=== PATIENT | male | born 1985 | race Caucasian/White ===

== ENCOUNTER 2020-03-06 11:53 | Emergency (ER) | payer OTHER ==
--- NOTE | 2020-03-06 13:18 | EDM.PDOC ---
ED HPI GENERAL MEDICAL PROBLEM - General Chief Complaint: General Stated Complaint: HAS ACUTE LIVER FAILURE Time Seen by Provider: 03/06/20 13:18 Source of Information: Reports: Patient History Limitations: Reports: No Limitations - History of Present Illness INITIAL COMMENTS - FREE TEXT/NARRATIVE: pt stood up and passed out today. He has a history of liver diseasse. Pt was martha quintanilla recently worked up at the [facility] in [facility]> Pt was told he had liver failure. Onset: Today, Other (pt passed out today when he stood up. ) Duration: Hour(s): Location: Reports: Head, Abdomen Associated Symptoms: Reports: Syncope, Weakness - Related Data Allergies Allergy/AdvReac Type Severity Reaction Status Date / Time No Known Allergies Allergy Verified 03/06/20 12:42 Home Meds: Home Meds lisinopriL [Lisinopril] 40 mg PO DAILY 03/06/20 [History] metFORMIN [Glucophage] 500 mg PO BIDMEALS 03/06/20 [History] prednisoLONE [Prednisolone] 13.3 ml PO DAILY 03/06/20 [History] Past Medical History HEENT History: Reports: Allergic Rhinitis, Impaired Vision Cardiovascular History: Reports: Hypertension Gastrointestinal History: Reports: Other (See Below) Other Gastrointestinal History: acute liver injury Neurological History: Reports: Other (See Below) Other Neuro History: essential tremors Psychiatric History: Reports: Anxiety, Depression, PTSD Endocrine/Metabolic History: Reports: Diabetes, Type II Dermatologic History: Reports: Psoriasis Social & Family History - Tobacco Use Smoking Status *Q: Current Every Day Smoker Years of Tobacco use: 15 Packs/Tins Daily: 1 - Caffeine Use Caffeine Use: Reports: None - Recreational Drug Use Recreational Drug Use: Yes Recreational Drug Type: Reports: Marijuana/Hashish Recreational Drug Use Frequency: Socially ED ROS GENERAL - Review of Systems Review Of Systems: See Below Constitutional: Reports: Fever, Chills, Weakness HEENT: Reports: No Symptoms Respiratory: Reports: No Symptoms Cardiovascular: Reports: Syncope Endocrine: Reports: High Glucose GI/Abdominal: Reports: No Symptoms : Reports: No Symptoms Musculoskeletal: Reports: No Symptoms Skin: Reports: No Symptoms Neurological: Reports: Syncope, Other (pt was hypotensive. ) ED EXAM, GENERAL - Physical Exam Exam: See Below Free Text/Narrative:: pt arrived with a history of pasing out this am. [facility] and was worked [facility]. He was told he was in [facility]. He does have a temp of 101. Exam Limited By: No Limitations General Appearance: Alert, No Apparent Distress, Anxious, Other (pupils are equal and reactive. He is clinically jaundiced. ) Ears: Normal TMs Nose: Normal Inspection Throat/Mouth: Normal Inspection Head: Atraumatic Neck: Normal Inspection Respiratory/Chest: No Respiratory Distress Cardiovascular: Regular Rate, Rhythm GI/Abdominal: Soft, Non-Tender (Male) Exam: Deferred Rectal (Males) Exam: Deferred Back Exam: Normal Inspection Extremities: Normal Inspection Neurological: Alert, Oriented, Normal Cognition Psychiatric: Anxious Course - Vital Signs Last Recorded V/S: Last Vital Signs Temp 36.7 C 03/06/20 17:44 Pulse 85 03/06/20 19:22 Resp 25 H 03/06/20 19:22 BP 92/36 L 03/06/20 19:22 Pulse Ox 95 03/06/20 19:22 - Orders/Labs/Meds Labs: Laboratory Tests 03/06/20 03/06/20 03/06/20 Range/Units 13:06 13:06 13:07 WBC 23.8 H (4.5-11.0) K/uL RBC 3.61 L (4.30-5.90) M/uL Hgb 12.1 (12.0-15.0) g/dL Hct 33.6 L (40.0-54.0) % MCV 93 (80-98) fL MCH 34 H (27-31) pg MCHC 36 (32-36) % Plt Count 125 L (150-400) K/uL Add Manual Diff Yes Neutrophils % (Manual) 85 H (36-66) % Band Neutrophils % 3 L (5-11) % Lymphocytes % (Manual) 5 L (24-44) % Monocytes % (Manual) 6 (2-6) % Eosinophils % (Manual) 1 L (2-4) % PT (9.5-12.0) sec INR (0.80-1.20) APTT (27.0-36.0) sec Sodium 124 L (140-148) mmol/L Potassium 4.8 (3.6-5.2) mmol/L Chloride 90 L (100-108) mmol/L Carbon Dioxide 28 (21-32) mmol/L Anion Gap 10.8 (5.0-14.0) mmol/L BUN 31 H (7-18) mg/dL Creatinine 2.0 H (0.8-1.3) mg/dL Est Cr Clr Drug Dosing 50.35 mL/min Estimated GFR (MDRD) 38 L (>60) Glucose 587 H* (74-106) mg/dL Lactic Acid (0.4-2.0) mmol/L Calcium 8.4 L (8.5-10.1) mg/dL Total Bilirubin 8.4 H (0.2-1.0) mg/dL AST 58 H (15-37) U/L ALT 92 H (12-78) U/L Alkaline Phosphatase 233 H (46-116) U/L Ammonia 12 (11-32) mmol/L C-Reactive Protein (0.0-0.3) mg/dL Total Protein 6.1 L (6.4-8.2) g/dL Albumin 1.9 L (3.4-5.0) g/dL Globulin 4.2 H (2.3-3.5) g/dL Albumin/Globulin Ratio 0.5 L (1.2-2.2) Lipase (73-393) U/L Urine Color (YELLOW) Urine Appearance (CLEAR) Urine pH (5.0-8.0) Ur Specific Scobey (1.008-1.030) Urine Protein (NEGATIVE) mg/dL Urine Glucose (UA) (NEGATIVE) mg/dL Urine Ketones (NEGATIVE) mg/dL Urine Occult Blood (NEGATIVE) Urine Nitrite (NEGATIVE) Urine Bilirubin (NEGATIVE) Urine Urobilinogen (0.2-1.0) EU/dL Ur Leukocyte Esterase (NEGATIVE) Urine RBC (0-5) Urine WBC (0-5) Ur Epithelial Cells Amorphous Sediment Urine Bacteria Urine Mucus Ethyl Alcohol mg/dL 03/06/20 03/06/20 03/06/20 Range/Units 13:19 13:29 13:30 WBC (4.5-11.0) K/uL RBC (4.30-5.90) M/uL Hgb (12.0-15.0) g/dL Hct (40.0-54.0) % MCV (80-98) fL MCH (27-31) pg MCHC (32-36) % Plt Count (150-400) K/uL Add Manual Diff Neutrophils % (Manual) (36-66) % Band Neutrophils % (5-11) % Lymphocytes % (Manual) (24-44) % Monocytes % (Manual) (2-6) % Eosinophils % (Manual) (2-4) % PT 16.7 H (9.5-12.0) sec INR 1.59 H (0.80-1.20) APTT 30.1 (27.0-36.0) sec Sodium (140-148) mmol/L Potassium (3.6-5.2) mmol/L Chloride (100-108) mmol/L Carbon Dioxide (21-32) mmol/L Anion Gap (5.0-14.0) mmol/L BUN (7-18) mg/dL Creatinine (0.8-1.3) mg/dL Est Cr Clr Drug Dosing mL/min Estimated GFR (MDRD) (>60) Glucose (74-106) mg/dL Lactic Acid 3.5 H (0.4-2.0) mmol/L Calcium (8.5-10.1) mg/dL Total Bilirubin (0.2-1.0) mg/dL AST (15-37) U/L ALT (12-78) U/L Alkaline Phosphatase (46-116) U/L Ammonia (11-32) mmol/L C-Reactive Protein 5.62 H (0.0-0.3) mg/dL Total Protein (6.4-8.2) g/dL Albumin (3.4-5.0) g/dL Globulin (2.3-3.5) g/dL Albumin/Globulin Ratio (1.2-2.2) Lipase (73-393) U/L Urine Color (YELLOW) Urine Appearance (CLEAR) Urine pH (5.0-8.0) Ur Specific Scobey (1.008-1.030) Urine Protein (NEGATIVE) mg/dL Urine Glucose (UA) (NEGATIVE) mg/dL Urine Ketones (NEGATIVE) mg/dL Urine Occult Blood (NEGATIVE) Urine Nitrite (NEGATIVE) Urine Bilirubin (NEGATIVE) Urine Urobilinogen (0.2-1.0) EU/dL Ur Leukocyte Esterase (NEGATIVE) Urine RBC (0-5) Urine WBC (0-5) Ur Epithelial Cells Amorphous Sediment Urine Bacteria Urine Mucus Ethyl Alcohol mg/dL 03/06/20 03/06/20 03/06/20 Range/Units 13:34 14:00 14:00 WBC (4.5-11.0) K/uL RBC (4.30-5.90) M/uL Hgb (12.0-15.0) g/dL Hct (40.0-54.0) % MCV (80-98) fL MCH (27-31) pg MCHC (32-36) % Plt Count (150-400) K/uL Add Manual Diff Neutrophils % (Manual) (36-66) % Band Neutrophils % (5-11) % Lymphocytes % (Manual) (24-44) % Monocytes % (Manual) (2-6) % Eosinophils % (Manual) (2-4) % PT (9.5-12.0) sec INR (0.80-1.20) APTT (27.0-36.0) sec Sodium (140-148) mmol/L Potassium (3.6-5.2) mmol/L Chloride (100-108) mmol/L Carbon Dioxide (21-32) mmol/L Anion Gap (5.0-14.0) mmol/L BUN (7-18) mg/dL Creatinine (0.8-1.3) mg/dL Est Cr Clr Drug Dosing mL/min Estimated GFR (MDRD) (>60) Glucose (74-106) mg/dL Lactic Acid (0.4-2.0) mmol/L Calcium (8.5-10.1) mg/dL Total Bilirubin (0.2-1.0) mg/dL AST (15-37) U/L ALT (12-78) U/L Alkaline Phosphatase (46-116) U/L Ammonia (11-32) mmol/L C-Reactive Protein (0.0-0.3) mg/dL Total Protein (6.4-8.2) g/dL Albumin (3.4-5.0) g/dL Globulin (2.3-3.5) g/dL Albumin/Globulin Ratio (1.2-2.2) Lipase 383 (73-393) U/L Urine Color Yellow (YELLOW) Urine Appearance Clear (CLEAR) Urine pH 5.5 (5.0-8.0) Ur Specific Scobey 1.015 (1.008-1.030) Urine Protein Negative (NEGATIVE) mg/dL Urine Glucose (UA) 500 H (NEGATIVE) mg/dL Urine Ketones Negative (NEGATIVE) mg/dL Urine Occult Blood Negative (NEGATIVE) Urine Nitrite Negative (NEGATIVE) Urine Bilirubin Small H (NEGATIVE) Urine Urobilinogen 1.0 (0.2-1.0) EU/dL Ur Leukocyte Esterase Negative (NEGATIVE) Urine RBC Not seen (0-5) Urine WBC 0-5 (0-5) Ur Epithelial Cells Rare Amorphous Sediment Not seen Urine Bacteria Not seen Urine Mucus Not seen Ethyl Alcohol < 3 mg/dL 03/06/20 Range/Units 17:00 WBC (4.5-11.0) K/uL RBC (4.30-5.90) M/uL Hgb (12.0-15.0) g/dL Hct (40.0-54.0) % MCV (80-98) fL MCH (27-31) pg MCHC (32-36) % Plt Count (150-400) K/uL Add Manual Diff Neutrophils % (Manual) (36-66) % Band Neutrophils % (5-11) % Lymphocytes % (Manual) (24-44) % Monocytes % (Manual) (2-6) % Eosinophils % (Manual) (2-4) % PT (9.5-12.0) sec INR (0.80-1.20) APTT (27.0-36.0) sec Sodium (140-148) mmol/L Potassium (3.6-5.2) mmol/L Chloride (100-108) mmol/L Carbon Dioxide (21-32) mmol/L Anion Gap (5.0-14.0) mmol/L BUN (7-18) mg/dL Creatinine (0.8-1.3) mg/dL Est Cr Clr Drug Dosing mL/min Estimated GFR (MDRD) (>60) Glucose 538 H* (74-106) mg/dL Lactic Acid (0.4-2.0) mmol/L Calcium (8.5-10.1) mg/dL Total Bilirubin (0.2-1.0) mg/dL AST (15-37) U/L ALT (12-78) U/L Alkaline Phosphatase (46-116) U/L Ammonia (11-32) mmol/L C-Reactive Protein (0.0-0.3) mg/dL Total Protein (6.4-8.2) g/dL Albumin (3.4-5.0) g/dL Globulin (2.3-3.5) g/dL Albumin/Globulin Ratio (1.2-2.2) Lipase (73-393) U/L Urine Color (YELLOW) Urine Appearance (CLEAR) Urine pH (5.0-8.0) Ur Specific Sc[place]ey (1.008-1.030) Urine Protein (NEGATIVE) mg/dL Urine Glucose (UA) (NEGATIVE) mg/dL Urine Ketones (NEGATIVE) mg/dL Urine Occult Blood (NEGATIVE) Urine Nitrite (NEGATIVE) Urine Bilirubin (NEGATIVE) Urine Urobilinogen (0.2-1.0) EU/dL Ur Leukocyte Esterase (NEGATIVE) Urine RBC (0-5) Urine WBC (0-5) Ur Epithelial Cells Amorphous Sediment Urine Bacteria Urine Mucus Ethyl Alcohol mg/dL Meds: Medications Discontinued Medications Generic Name Dose Route Start Last Admin Trade Name Freq PRN Reason Stop Dose Admin Acetaminophen 650 mg 03/06/20 15:41 03/06/20 16:04 Tylenol PO 03/06/20 15:42 650 mg NOW ONE Administration Sodium Chloride 1,000 mls @ 999 mls/hr 03/06/20 13:30 03/06/20 13:30 Normal Saline IV 999 mls/hr ASDIRECTED ISABEL Administration Sodium Chloride 1,000 mls @ 999 mls/hr 03/06/20 14:45 03/06/20 14:45 Normal Saline IV 999 mls/hr ASDIRECTED ISABEL Administration Ceftriaxone Sodium 1 gm/ 50 mls @ 100 mls/hr 03/06/20 15:08 03/06/20 15:31 Sodium Chloride IV 03/06/20 15:37 100 mls/hr ONETIME ONE Administration Aztreonam 1 gm/ Sodium 50 mls @ 100 mls/hr 03/06/20 15:45 03/06/20 16:05 Chloride IV 03/06/20 16:14 100 mls/hr ONETIME ONE Administration Sodium Chloride 1,000 mls @ 500 mls/hr 03/06/20 17:00 03/06/20 17:00 Normal Saline IV 500 mls/hr ASDIRECTED ISABEL Administration Piperacillin Sod/Tazobactam 50 mls @ 100 mls/hr 03/06/20 17:45 03/06/20 17:48 Sod 3.375 gm/ Sodium Chloride IV 100 mls/hr ONETIME ISABEL Administration Insulin Human Regular 8 unit 03/06/20 15:46 03/06/20 15:59 Humulin R SUBCUT 03/06/20 15:47 8 units ONETIME ONE Administration Insulin Human Regular 8 unit 03/06/20 17:16 03/06/20 17:23 Humulin R SUBCUT 03/06/20 17:17 8 units ONETIME ONE Administration - Re-Assessments/Exams Free Text/Narrative Re-Assessment/Exam: 03/06/20 15:53 pt had a temp of 101 and was hypotensive. He had passed out at home. He has received 2 liters of fluid. 03/06/20 15:55 He was given rocephen and azactsm. He will receive a third liter of normal saline. Pt was given 8 units of insulin subq. 03/06/20 16:55 pt has a elevated creatnine and it was normal when at [facility]. 2.9, bun 38. he has a wbc of 23,000. 03/06/20 16:56 03/06/20 17:36 pt was accepted at [facility]. A Inr was done which was 1.59. He is on his 3rd liter of fluid and continues to be hypotensive. His bs is still very elevated and he was given another 6 units of insulin for a total of 14 units. He will go to [place]. p Departure - Departure Time of Disposition: 17:39 Disposition: DC/Tfer to Acute Hospital 02 Condition: Fair Clinical Impression: Hyperglycemia, Sepsis, Liver failure, Renal insufficiency, Hypotension, Hyponatremia - Discharge Information Referrals: PCP,None [Primary Care Provider] - Forms: ED Department Discharge Care Plan Goals: transfer to [facility] --[place]. Sepsis Event Note (ED) - Evaluation Sepsis Screening Result: No Definite Risk
[2020-03-06] MEDS ORDERED: Sodium Chloride 0.9% 1,000 ML IV SCH ×3 (13:30→17:00)
--- NOTE | 2020-03-06 13:56 | CR ---
CHEST: Portable 03/06/2020 at 1:43 PM CLINICAL HISTORY:Fever COMPARISON:None FINDINGS: There is less than optimal inspiration.. Heart size and pulmonary vascularity are normal. No infiltrates are seen. There are some streaky density at the right lung base which is likely subsegmental atelectasis Impression: Limited study with poor inspiration. No acute cardiopulmonary process
--- NOTE | 2020-03-06 14:25 | US ---
Abdomen Ltd CLINICAL HISTORY: Jaundice COMPARISON: None. TECHNIQUE: Real-time images were obtained through the right upper quadrant. FINDINGS: The liver is free of mass or biliary dilatation. There is normal hepatic echotexture. The gallbladder is contracted. The common bile duct measures 5 mm. The pancreas is moderately obscured by bowel gas. The right kidney has a normal appearance. The IVC is normal. IMPRESSION: Contracted gallbladder. No stones or biliary dilatation seen Normal liver parenchymal echogenicity
[2020-03-06] MEDS ORDERED: cefTRIAXone 1 GM in Sodium Chloride 0.9% 50 ML IV ONE (15:08)
[2020-03-06] MEDS ORDERED: Acetaminophen 325 MG Tab PO ONE (15:41)
[2020-03-06] MEDS ORDERED: Insulin Regular, Human 100 Units/ML 3 ML Vial SUBCUT ONE ×2 (15:46→17:16)
[2020-03-06] MEDS ORDERED: Piperacillin/Tazobactam 3.375 GM in Sodium Chloride 0.9% 50 ML IV SCH (17:45)
== END 2020-03-06 20:00 ==
LOC: JP.ED 11:53
DX: A41.9 Sepsis, unspecified organism (principal); R65.20 Severe sepsis without septic shock; K72.90 Hepatic failure, unspecified without coma; I95.9 Hypotension, unspecified; E87.1 Hypo-osmolality and hyponatremia; N28.9 Disorder of kidney and ureter, unspecified; E11.65 Type 2 diabetes mellitus with hyperglycemia; I10 Essential (primary) hypertension; F17.210 Nicotine dependence, cigarettes, uncomplicated; Z79.84 Long term (current) use of oral hypoglycemic drugs; Z79.899 Other long term (current) drug therapy
CPT/HCPCS: 36415; 71045; 76705; 80053; 80307; 81001; 82140; 82947; 82962; 83605; 83690; 85025; 85610; 85730; 86140; 87040; 87081; 87220; 87880; 96361; 96365; 96367; 99285; A9270; J0696; J1815; J2543; J3490; J7030; J7050